=== PATIENT | female | born 1990 | race Caucasian/White ===

== ENCOUNTER 2021-02-15 19:14 | Outpatient (CLI) | payer BC ==
[~2021-02-15] VITALS: Ht 167.6 cm; Wt 86.4 kg
[2021-02-15 19:50] VITALS: BP 115/61; PULSE 120; TEMP 98.9
--- NOTE | 2021-02-15 19:50 | NUR ---
1950 G1L0 26 WEEK GEST TO LR1 WITH C/O DECREASED MOVEMENT AND COVID SYMPTOMS SINCE YESTERDAY. HAS BEEN RUNNING A FEVER AND TAKING TYLENOL LAST AT 1600. STATES HAS A HEADACHE, BACKACHE, COUGH AND GENERAL MALAISE. RAPID COVID TEST DONE ON ADM TO ROOM. EFM ON WITH FHT'S 160 BASELINE WITH INCREASE TO 170'S WITH MOVEMENT. PT DOES NOT FEEL BABY MOVE AT FIRST WITH MOVEMENT HEARD ON EFM BUT EVENTUALLY STATES DOES FEEL BABY MOVING. ADM ASSESSMENT COMPLETED.
[2021-02-15] MEDS ORDERED: PRENATAL TABLET PO (20:00)
[2021-02-15] MEDS ORDERED: UNISOM25 MG PO (20:01)
[2021-02-15] MEDS ORDERED: TYLENOL 500MG500 MG PO (20:02)
--- NOTE | 2021-02-15 20:30 | NUR ---
2029 DR HARE NOTIFIED OF POSITIVE COVID RESULTS. ORDERS RECEIVED. 2044 HOME WITH INSTRUCTIONS.
== END 2021-02-15 20:45 | disposition home or self-care (01) ==
LOC: LDRO 19:14
DX: O36.8120 Decreased fetal movements, second trimester, not applicable or unspecified (principal); O26.892 Other specified pregnancy related conditions, second trimester; M54.9 Dorsalgia, unspecified; R50.9 Fever, unspecified; Z3A.26 26 weeks gestation of pregnancy

== ENCOUNTER 2021-04-02 15:29 | Outpatient (CLI) | payer BC ==
[~2021-04-02] VITALS: Wt 87.7 kg
[~2021-04-02 15:29] MED LIST: PRENATAL TABLET PO; TYLENOL 500MG500 MG PO; UNISOM25 MG PO
[2021-04-02] MEDS ORDERED: FLONASE NASAL S16 GM NS (15:52)
[2021-04-02] MEDS ORDERED: ASPIRIN 81M81 MG/TA2 PO (15:52)
[2021-04-02 16:11] VITALS: BP 117/65; PULSE 96; TEMP 98
--- NOTE | 2021-04-02 16:11 | NUR ---
1534- Pt arrives on unit ambulatory, sent to hospital by office staff. Pt states she had a small amount of bright red spotting around 1300 today. States it was not on her underwear but noticed it when she wiped. She states it has since resolved. Pt into bathroom, voids, changes into gown. 1537- Pt into bed. EFM and TOCO on and tracing. Pt denies any VB when she voided here. Pt denies LOF and UCs. +FM per Pt. Assessment completed. 1559- SVE by this RN, cervix closed, no VB noted on exam glove. 1605- Dr Galeas notified, see physician notification. 1611- Pt updated on plan to discharge home. Pt denies questions. EFM and TOCO off. Pt up to bathroom to change into street clothes. 1622- Discharge paperwork given and explained. Pt ambulates off unit in stable condition.
== END 2021-04-02 16:22 | disposition home or self-care (01) ==
LOC: LDRO 15:29
DX: O26.853 Spotting complicating pregnancy, third trimester (principal); Z3A.33 33 weeks gestation of pregnancy

== ENCOUNTER 2021-06-26 06:51 | Emergency (ER) | payer BC ==
[~2021-06-26] VITALS: Ht 167.6 cm; Wt 79.1 kg
[~2021-06-26 06:51] MED LIST changes: +ASPIRIN 81M81 MG/TA2 PO; +FLONASE NASAL S16 GM NS
[2021-06-26 07:00] VITALS: BP 115/73; PULSE 76; TEMP 97.8
[2021-06-26] MEDS ORDERED: PRENATAL TABLET PO (07:04)
[2021-06-26] MEDS ORDERED: NORCO 325 MG-51 TAB PO (07:23)
[2021-06-26 07:40] LABS: COLLECTION METHOD CLEAN CATCH
[2021-06-26 07:46] LABS: MUCOUS Present (NOT PRESENT); PH 5 (5-8); URINE APPEARANCE Hazy (CLEAR/HAZY); URINE BACTERIA None Seen /hpf (NONE SEEN); URINE BILIRUBIN Negative (NEGATIVE); URINE BLOOD Negative (NEGATIVE); URINE COLOR Yellow (YELLOW); URINE GLUCOSE Negative (NEGATIVE); URINE KETONE Negative (NEGATIVE); URINE LEUKOCYTE ESTERASE 3+ (NEGATIVE); URINE NITRATE Negative (NEGATIVE); URINE PROTEIN(semi-quant) Negative (NEGATIVE); URINE UROBILINOGEN Negative (NEGATIVE)
[2021-06-26] MEDS ORDERED: CIPRO 250MG TA250 MG PO (07:57)
== END 2021-06-26 07:35 | disposition home or self-care (01) ==
LOC: COL.ER 06:51
PROVIDERS: Emergency Medicine
DX: M25.512 Pain in left shoulder (principal); M25.511 Pain in right shoulder; M25.552 Pain in left hip; M25.551 Pain in right hip; N39.0 Urinary tract infection, site not specified; Z79.2 Long term (current) use of antibiotics

== ENCOUNTER 2023-11-23 07:56 | Outpatient (CLI) | payer OTHER ==
[~2023-11-23] VITALS: Ht 170.2 cm; Wt 85.9 kg
[~2023-11-23 07:56] MED LIST changes: +ANTIVERT 25MG25 MG PO; +CIPRO 250MG TA250 MG PO; +NORCO 325 MG-51 TAB PO
--- NOTE | 2023-11-23 08:00 | NUR ---
PT AMBULATORY TO UNIT BY SELF, REPORTS DECREASED FM AFTER HOURS OF REST, JUICE, MUSIC, TRYING TO GET BABY TO MOVE. PT REPORTS CTX YESTERDAY FOR HOURS BUT NONE LAST NIGHT OR TODAY. REPORTS NO LOF OR VAGINAL BLEEDING. EFM CAT 1, VS STABLE. DR. RINALDI NOTIFIED WITH ORDER TO GET REASSURING STRIP AND DC HOME.
[2023-11-23] MEDS ORDERED: UNISOM25 MG PO (08:24)
[2023-11-23] MEDS ORDERED: PHARMASSURE MA500 MG PO (08:24)
[2023-11-23] MEDS ORDERED: VITAMIN B-625 MG (08:24)
[2023-11-23 08:50] VITALS: BP 110/69; PULSE 97; TEMP 97.5
--- NOTE | 2023-11-23 08:50 | NUR ---
DC INSTRUCTIONS REVIEWED, PT AGREES AND UNDERSTANDS. IS COMFORTABLE GOING HOME.
== END 2023-11-23 08:50 | disposition home or self-care (01) ==
LOC: LDRO 07:56
DX: O36.8130 Decreased fetal movements, third trimester, not applicable or unspecified (principal); Z3A.29 29 weeks gestation of pregnancy

== ENCOUNTER 2023-12-03 12:06 | Emergency (ER) | payer OTHER ==
[~2023-12-03] VITALS: Ht 167.6 cm; Wt 86.2 kg
[~2023-12-03 12:06] MED LIST changes: +PHARMASSURE MA500 MG PO; +VITAMIN B-625 MG
[2023-12-03 12:16] VITALS: TEMP 98
[2023-12-03 12:44] LABS: HEMATOCRIT 37.2 % (37.0-47.0); HEMOGLOBIN 12.3 g/dl (12.5-16.0); MEAN CELL VOLUME 89 fl (80.0-100.0); MEAN CORPUSCULAR HEMOGLOBIN 29 pg (27-31); MEAN CORPUSCULAR HGB CONC 33 g/dl (33.0-37.0); PLATELET COUNT 278 K/mm3 (130-400); REDCELL DISTRIBUTION WIDTH-CV 13.2 % (11.5-14.5)
[2023-12-03] MEDS ORDERED: NS 1,000 ML IV ONE (12:45)
[2023-12-03 12:57] LABS: ALANINE AMINOTRANSFERASE 14 U/L (0-55); ALBUMIN 2.9 g/dL (3.5-5.0); ALKALINE PHOSPHATASE 112 U/L (40-150); ANION GAP 13 mmol/L (7-16); AST,SGOT 29 U/L (5-34); BILIRUBIN,TOTAL 0.2 mg/dL (0.2-1.2); BLOOD UREA NITROGEN 7 mg/dL (7-19); CALCIUM 9.5 mg/dL (8.4-10.2); CHLORIDE 105 mEq/L (98-107); GLUCOSE 92 mg/dL (70-99); POTASSIUM 3.6 mEq/L (3.5-4.5); SODIUM 138 mEq/L (136-145); TOTAL PROTEIN 7.7 g/dl (6.2-8.1)
[2023-12-03 13:04] LABS: TROPONIN-I < 0.010 ng/mL (0.00-0.033)
[2023-12-03 13:16] LABS: BAND 13 % (0-10); LYMPHOCYTE 13 % (20.0-51.0); NEUTROPHILS 70 % (42.0-75.2)
[2023-12-03 13:17] LABS: PLATELET ESTIMATE NORMAL (NORMAL)
[2023-12-03 13:51] VITALS: BP 109/61; PULSE 91
== END 2023-12-03 14:03 | disposition home or self-care (01) ==
LOC: COL.ER 12:06
PROVIDERS: Emergency Medicine
DX: O99.413 Diseases of the circulatory system complicating pregnancy, third trimester (principal); R00.0 Tachycardia, unspecified; O26.813 Pregnancy related exhaustion and fatigue, third trimester; R42 Dizziness and giddiness; Z3A.30 30 weeks gestation of pregnancy
CPT/HCPCS: J7030